=== PATIENT | male | born 2000 | race Hispanic/Latino ===

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

== ENCOUNTER 2024-10-13 20:18 | Emergency (ER) | payer OTHER, SELFPAY ==
[2024-10-13] MEDS ORDERED: Boostrix 0.5 ML (Tdap) VIAL (>/=7 yrs of age) ONE (20:46)
== END 2024-10-13 21:47 | disposition home or self-care (01) ==
LOC: ERS 20:18
DX: S61.112A Laceration without foreign body of left thumb with damage to nail, initial encounter (principal); W26.8XXA Contact with other sharp object(s), not elsewhere classified, initial encounter
CPT/HCPCS: 90471; 90715